=== PATIENT | female | born 1990 ===

== ENCOUNTER 2021-03-26 13:14 | Emergency (ER) | payer SELFPAY ==
[2021-03-26] MEDS ORDERED: HYDROcodone/ACETAMINOPHEN 5-325 MG TAB PO SCH (14:30)
[2021-03-26] MEDS: ONDANSETRON 4 MG ODT TAB PO SCH ×2 (14:45→14:46)
[2021-03-26 14:58] VITALS: BP 126/80
[2021-03-26 15:20] LABS: Bacteria,Urine 1+ /HPF (Negative); Bilirubin,Urine NEG (Negative); Blood,Urine NEG (Negative); Color,Urine Yellow (Yellow); Mucus,Urine FEW /HPF; Protein,Urine <15 mg/dL mg/dL (Negative); Urobilinogen,Urine < 2.0 mg/dL (<2.0)
[2021-03-26 15:52] LABS: HCG Qualitative,Urine Negative (Negative)
[2021-03-26] MEDS ORDERED: KETOROLAC 60 MG/2 ML INJ IM ONE (16:10)
[2021-03-26] MEDS ORDERED: CYCLOBENZAPRINE 10 MG TAB PO ONE (16:10)
--- NOTE | 2021-03-26 16:24 | Emergency Department Report ---
ED Back Pain/Injury HPI - General Chief Complaint: Back Pain/Injury Stated Complaint: LOWER BACK PAIN Time Seen by Provider: 03/26/21 13:28 Source: patient Limitations: No Limitations - History of Present Illness Initial Comments: Patient is a 30-year-old female presents emergency room complaints of lower back pain that radiates to her bilateral gluteus that began 2 days ago. Patient states that today she was doing laundry and she bent over to move the laundry and then she felt sharp spasms in her back locked up and she fell to the ground. She denies any numbness, weakness, bowel or bladder incontinence, fever, urinary symptoms, vomiting, diarrhea, abdominal pain. Patient denies any past medical history no allergies to medications. She states that her last menstrual cycle was last month but she is not sure if she could possibly be - Related Data Previous Rx's Medication Instructions Recorded Last Taken Type HYDROcodone/APAP 7.5-325 [[place] 1 each PO Q8HR PRN #12 tablet 03/26/21 Unknown Rx 7.5/325] Naproxen 500 mg PO BID PRN #20 tablet 03/26/21 Unknown Rx cephALEXin [Keflex] 500 mg PO BID 7 Days #14 cap 03/26/21 Unknown Rx methOCARBAMOL [Robaxin TAB] 500 mg PO BID PRN #20 tab 03/26/21 Unknown Rx Allergies Allergy/AdvReac Type Severity Reaction Status Date / Time No Known Allergies Allergy Unverified 03/26/21 14:38 ED Review of Systems ROS: Stated complaint: LOWER BACK PAIN Other details as noted in HPI Comment: All other systems reviewed and negative ED Past Medical Hx - Medications Home Medications: Home Medications Medication Instructions Recorded Confirmed Last Taken Type HYDROcodone/APAP 7.5-325 [[place] 1 each PO Q8HR PRN #12 tablet 03/26/21 Unknown Rx 7.5/325] Naproxen 500 mg PO BID PRN #20 tablet 03/26/21 Unknown Rx cephALEXin [Keflex] 500 mg PO BID 7 Days #14 cap 03/26/21 Unknown Rx methOCARBAMOL [Robaxin TAB] 500 mg PO BID PRN #20 tab 03/26/21 Unknown Rx ED Physical Exam - General Limitations: No Limitations General appearance: alert, in no apparent distress - Head Head exam: Present: atraumatic, normocephalic - Eye Eye exam: Present: normal appearance - ENT ENT exam: Present: mucous membranes moist - Neck Neck exam: Present: normal inspection, full ROM. Absent: tenderness, meningismus - Respiratory Respiratory exam: Present: normal lung sounds bilaterally. Absent: respiratory distress, wheezes, rales, rhonchi, stridor, chest wall tenderness, accessory muscle use, decreased breath sounds, prolonged expiratory - Cardiovascular Cardiovascular Exam: Present: regular rate, normal rhythm, normal heart sounds. Absent: systolic murmur, diastolic murmur, rubs, gallop - Back Exam Back exam: Present: normal inspection, full ROM, paraspinal tenderness (bilateral lumbar), vertebral tenderness ( lumbar, no step offs, no deformities) - Neurological Exam Neurological exam: Present: alert, oriented X3, CN II-XII intact, normal gait. Absent: motor sensory deficit - Psychiatric Psychiatric exam: Present: normal affect, normal mood - Skin Skin exam: Present: warm, dry, intact ED Course Vital Signs 03/26/21 03/26/21 13:17 14:57 Temperature 98.3 F 97.9 F Pulse Rate 92 H 71 Respiratory 17 17 Rate Blood Pressure 111/87 126/80 [Right] O2 Sat by Pulse 99 100 Oximetry ED Medical Decision Making - Lab Data Vital Signs 03/26/21 03/26/21 13:17 14:57 Temperature 98.3 F 97.9 F Pulse Rate 92 H 71 Respiratory 17 17 Rate Blood Pressure 111/87 126/80 [Right] O2 Sat by Pulse 99 100 Oximetry - Radiology Data Radiology results: report reviewed Ordering Physician: JESSE AN Date of Service: 03/26/21 Procedure(s): XR spine lumbosacral 2-3V Accession Number(s): [id number] cc: JESSE AN Fluoro Time In Minutes: LUMBOSACRAL SPINE 3 VIEWS INDICATION / CLINICAL INFORMATION: Back pain; fall to ground... 2 days ago. COMPARISON: None available. FINDINGS: BONES / JOINT(S): There is bilateral spondylolysis at L5 with grade 1 anterolisthesis of L5 on S1 and minimal associated degenerative disc disease at L5-S1. There is minimal anterior spurring at several other levels in the lumbar spine without significant disc space narrowing. The pedicles are intact and the SI joints are normal. There is no evidence of acute fracture. SOFT TISSUES: No significant abnormality. ADDITIONAL FINDINGS: None. 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 Signer Name: Monico Sawant MD Signed: 03/26/2021 5:19 PM Workstation Name: [id number] Transcribed By: RT Dictated By: Monico Sawant MD Electronically Authenticated By: Monico Sawant MD Signed Date/Time: 03/26/211718 DD/ 16 TD/TT: - Medical Decision Making Patient is a 30-year-old female presents emergency room complaints of lower back pain that radiates to her bilateral gluteus that began 2 days ago. Patient states that today she was doing laundry and she bent over to move the laundry and then she felt sharp spasms in her back locked up and she fell to the ground. She denies any numbness, weakness, bowel or bladder incontinence, fever, urinary symptoms, vomiting, diarrhea, abdominal pain. Patient denies any past medical history no allergies to medications. She states that her last menstrual cycle was last month but she is not sure if she could possibly be . vitals are normal. On exam patient has midline lumbar and bilateral paraspinal lumbar tenderness palpation, no step-offs, no deformities, no focal neuro deficits, 5 out of 5 strength in the bilateral lower extremities, patient is able to ambulate. 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 UA shows evidence of mild UTI, there are many epithelial cells, could be due to contamination, given that patient is having back pain, will cover with antibiotics. Discussed all findings with patient answer questions. Patient given medication while in the emergency department with some improvement of her back pain. Discussed the importance of outpatient primary care and neurosurgery follow-up. Advised patient Please take medication as prescribed. Follow-up with a field specialist. Follow-up with your primary care doctor. Return to emergency room for any new or worsening symptoms. Critical care attestation.: If time is entered above; I have spent that time in minutes in the direct care of this critically ill patient, excluding procedure time. ED Disposition Clinical Impression: Spondylolysis Low back pain Qualifiers: Chronicity: acute Back pain laterality: bilateral Sciatica presence: with sciatica Sciatica laterality: bilateral sciatica Qualified Code(s): M54.42 - Lumbago with sciatica, left side Spondylolisthesis Qualifiers: Spinal region: lumbar Qualified Code(s): M43.16 - Spondylolisthesis, lumbar region UTI (urinary tract infection) Qualifiers: Urinary tract infection type: acute cystitis Hematuria presence: without hematuria Qualified Code(s): N30.00 - Acute cystitis without hematuria Disposition: 01 HOME / SELF CARE / HOMELESS Is pt being admited?: No Does the pt Need Aspirin: No Condition: Stable Instructions: Spondylolisthesis, Spondylolysis Additional Instructions: Please take medication as prescribed. Follow-up with a field specialist. Follow-up with your primary care doctor. Return to emergency room for any new or worsening symptoms. Prescriptions: cephALEXin [Keflex] 500 mg PO BID 7 Days #14 cap Naproxen 500 mg PO BID PRN #20 tablet PRN Reason: Pain, Moderate (4-6) HYDROcodone/APAP 7.5-325 [[place] 7.5/325] 1 each PO Q8HR PRN #12 tablet PRN Reason: Pain , Severe (7-10) methOCARBAMOL [Robaxin TAB] 500 mg PO BID PRN #20 tab PRN Reason: muscle spasm/pain Referrals: PRIMARY CARE, [Primary Care Provider] - 2-3 Days TOMA PRESSLEY II, MD [Staff Physician] - 3-5 Days Time of Disposition: 19:56 Print Language: THAI
--- NOTE | 2021-03-26 17:23 | XRay Report ---
LUMBOSACRAL SPINE 3 VIEWS INDICATION / CLINICAL INFORMATION: Back pain; fall to ground... 2 days ago. COMPARISON: None available. FINDINGS: BONES / JOINT(S): There is bilateral spondylolysis at L5 with grade 1 anterolisthesis of L5 on S1 and minimal associated degenerative disc disease at L5-S1. There is minimal anterior spurring at several other levels in the lumbar spine without significant disc space narrowing. The pedicles are intact a nd the SI joints are normal. There is no evidence of acute fracture. SOFT TISSUES: No significant abnormality. ADDITIONAL FINDINGS: None. IMPRESSION: Bilateral spondylolysis at L5 with grade 1 spondylolisthesis and mild associated spondylo sis. Signer Name: Monico Sawant MD Signed: 03/26/2021 5:19 PM Workstation Name: [email or web address]
[2021-03-26] MEDS ORDERED: MORPHINE 4 MG/1 ML INJ IM ONE (17:26)
== END 2021-03-26 20:37 | disposition home or self-care (01) ==
LOC: ED 13:14
DX: M43.00 Spondylolysis, site unspecified (principal); M54.50 Low back pain, unspecified; N30.00 Acute cystitis without hematuria
CPT/HCPCS: 72100; 81001; 81025; 87086; 96372; 99283; J1885; J2270; J3490; Q0162